=== PATIENT | male | born 1965 | race Caucasian/White ===

== ENCOUNTER → 2023-09-09 | Outpatient (CLI) | payer OTHER ==
[2023-09-11 13:07] LABS: CALPROTECTIN,FECAL 152 ug/g (<=49)
[2023-09-11 13:12] LABS: PANCREATIC ELASTASE,FECAL 203 ug/g (>=100)
== END ==
LOC: LAB SHORT 11:36 → LAB 11:36
PROVIDERS: Physician Assistant Medical
DX: R19.7 Diarrhea, unspecified (principal); R10.13 Epigastric pain
CPT/HCPCS: 82653; 83993; 87338

== ENCOUNTER 2023-11-11 13:33 | Day surgery (SDC) | payer OTHER ==
[~2023-11-11] VITALS: Ht 182.9 cm; Wt 124.5 kg
[~2023-11-11 13:33] MED LIST: Atropine Sulfate 0.1 MG/ML 10ML SYR ONE; Glycopyrrolate 0.2 MG/ML 1MLVIAL ONE; Lactated Ringer's 1,000 ML IV ONE; Lidocaine 2% 5 ML SDV ONE; Lidocaine HCl/Pf 1% 5 ML VIAL ONE; Methylene Blue 1% 100 MG/10 ML VIAL ONE; Ondansetron HCl 2 MG / ML 2ML Vial ONE; ePHEDrine Sulfate 50 MG/ML 1ML Injection ONE
[2023-11-11] MEDS ORDERED: OLME20 (14:58)
[2023-11-11] MEDS ORDERED: TAMS.4ER (14:58)
[2023-11-11] MEDS ORDERED: ALBU90OI (14:58)
[2023-11-11] MEDS ORDERED: Lactated Ringer's 1,000 ML IV ONE (16:05)
[2023-11-11] MEDS ORDERED: propofoL 100 ML IV ONE (16:10)
--- NOTE | 2023-11-11 16:21 | NUR ---
11/11/23 1621 Laura Edwards PT. VERBALIZES ALWAYS HAS BACK & NECK PAIN. PAIN TODAY LAYING IN BED IS A "6".
== END 2023-11-11 17:21 | disposition home or self-care (01) ==
LOC: ORSCSDS 13:33
PROVIDERS: Specialist
PROC: 0DBE8ZX Excision of Large Intestine, Via Natural or Artificial Opening Endoscopic, Diagnostic (ICD-10-PCS; principal; 2023-11-11 15:00)
PROC: 0DBP8ZX Excision of Rectum, Via Natural or Artificial Opening Endoscopic, Diagnostic (ICD-10-PCS; principal; 2023-11-11 15:00)
PROC: 0DB78ZX Excision of Stomach, Pylorus, Via Natural or Artificial Opening Endoscopic, Diagnostic (ICD-10-PCS; principal; 2023-11-11 15:00)
PROC: 0DB98ZX Excision of Duodenum, Via Natural or Artificial Opening Endoscopic, Diagnostic (ICD-10-PCS; principal; 2023-11-11 15:00)
PROC: 0DBL8ZX Excision of Transverse Colon, Via Natural or Artificial Opening Endoscopic, Diagnostic (ICD-10-PCS; principal; 2023-11-11 15:00)
DX: R19.7 Diarrhea, unspecified (principal); R10.13 Epigastric pain; D12.3 Benign neoplasm of transverse colon; K62.1 Rectal polyp; R19.4 Change in bowel habit; Z98.84 Bariatric surgery status; I10 Essential (primary) hypertension; I25.2 Old myocardial infarction; J45.909 Unspecified asthma, uncomplicated; Z86.16 Personal history of COVID-19; E66.9 Obesity, unspecified; Z68.37 Body mass index [BMI] 37.0-37.9, adult; Z79.899 Other long term (current) drug therapy
CPT/HCPCS: 88305; 88342; J0461; J2001; J2405; J2704; J7120; Q9968

== ENCOUNTER → 2023-12-13 | Outpatient (CLI) | payer OTHER ==
[~2023-12-13] MED LIST changes: +ALBU90OI; -Atropine Sulfate 0.1 MG/ML 10ML SYR ONE; -Glycopyrrolate 0.2 MG/ML 1MLVIAL ONE; -Lactated Ringer's 1,000 ML IV ONE; -Lidocaine 2% 5 ML SDV ONE; -Lidocaine HCl/Pf 1% 5 ML VIAL ONE; -Methylene Blue 1% 100 MG/10 ML VIAL ONE; +OLME20; -Ondansetron HCl 2 MG / ML 2ML Vial ONE; +TAMS.4ER; -ePHEDrine Sulfate 50 MG/ML 1ML Injection ONE
[2023-12-18 12:38] LABS: CALCIUM, URINE - PER 24H 229 mg/d (100-250); CALCIUM, URINE - PER VOLUME 38.2 mg/dL; CHLORIDE, URINE - PER 24H 62 mmol/d (140-250); CHLORIDE, URINE - PER VOLUME 104 mmol/L; CITRIC ACID, URINE - PER 24H 314 mg/d (320-1240); CITRIC ACID,URINE - PER VOLUME 524 mg/L; CREATININE, URINE - PER 24H 1686 mg/d (800-2100); CREATININE, URINE - PER VOLUME 281 mg/dL; HOURS COLLECTED 24 hr; MAGNESIUM, URINE - PER VOLUME 18.1 mg/dL; MAGNESIUM, URINE PER 24H 109 mg/d (12-199); OXALATE, URINE - PER 24H 10 mg/d (16-49); OXALATE, URINE - PER VOLUME 16 mg/L; PH, URINE 5.57 (5.00-7.50); PHOSPHORUS, URINE - PER 24H 660 mg/d (400-1300); PHOSPHORUS, URINE - PER VOLUME 110 mg/dL; POTASSIUM, URINE - PER 24H 33 mmol/d (25-125); POTASSIUM, URINE - PER VOLUME 55 mmol/L; SODIUM, URINE - PER 24H 60 mmol/d (51-286); SODIUM, URINE - PER VOLUME 100 mmol/L; SULFATE, URINE - PER 24H 11 mmol/d (6-30); SULFATE, URINE - PER VOLUME 18 mmol/L; TOTAL VOLUME 600 mL; URIC ACID, URINE - PER 24H 414 mg/d (250-750); URINE SUPERSATURATION INTERP Abnormal; URINE SUPERSATURATION, CAHPO4 4.02; URINE SUPERSATURATION, CAOX 8.36; URINE SUPERSATURATION, UA CALC 2.16
== END ==
LOC: LAB SHORT 11:05 → LAB 11:05
PROVIDERS: Urology
DX: N20.0 Calculus of kidney (principal)
CPT/HCPCS: 81003; 82131; 82140; 82340; 82436; 82507; 82570; 83735; 83935; 83945; 84105; 84133; 84300; 84392; 84560